=== PATIENT | male | born 1975 | race Two or more races ===

== ENCOUNTER 2017-12-07 17:16 | Emergency (ER) | payer SELFPAY ==
[2017-12-07 17:25] VITALS: PULSE 77; TEMP 98.1
--- NOTE | 2017-12-07 18:57 | EDPHY ---
General Time Seen by Provider: 12/07/17 18:40 Narrative: CHIEF COMPLAINT: Right leg injury HISTORY OF PRESENT ILLNESS: Patient complains of right leg injury that was sustained at work. This happened 2-3 hours prior to arrival. He had his right foot in a ditch when a large rock rolled into it, striking him on the lateral aspect of the right leg below the knee. Sudden onset of pain in the right lateral rosenbaum and right medial ankle. Too painful to bear weight. No numbness or tingling. No weakness. There is abrasion to the right leg but no laceration. No pain in the right knee, thigh, hip. No injury elsewhere. No other associated complaints or modifying factors. ESTABLISHED ORTHOPEDIST: None REVIEW OF SYSTEMS: Ten systems reviewed and are negative unless otherwise noted in the HPI PAST MEDICAL HISTORY: Denies any medical history PAST SURGICAL HISTORY: None SOCIAL HISTORY: Nonsmoker. Lives and works here independently with his spouse FAMILY HISTORY: Noncontributory EXAMINATION General Appearance: Alert, no distress HEENT: Normocephalic atraumatic. Pupils equal round reactive. Cardiovascular: Symmetric DP pulses 2+. Symmetric PT pulses 2+. Regular rate. Neurological: A&O, sensation to the dorsum of the feet and plantar surfaces of the feet symmetric. No foot drop on the right lower extremity. Normal proprioception of the right great toe Skin: Warm and dry, no rash. Superficial abrasion to the right lateral lower leg. No laceration. No puncture. The right lower extremity is warm with good signs of perfusion of the foot Extremities: Severe tenderness of the right medial malleolus and right mid shaft fibula. There is mild deformity of the right fibula. No deformity of the midfoot. No pain with the right calcaneus with from palpation. Range of motion of the right ankle limited due to pain. Neurovascular intact distal to the areas of pain Psychiatric: Mood and affect normal DIFFERENTIAL DIAGNOSES: Including but not limited to compound fracture, tibia fracture, fibular fracture , sprain, strain, dislocation MDM: 6:40 p.m. Acute injury to the right lower leg with apparent fracture. This is closed. He is neurovascular intact distally. X-ray has been ordered. 6:50 p.m. X-ray as read by me reveals right, minimally displaced midshaft fibular fracture. There is also a medial malleolar fracture with displacement angulation. 6:58 p.m. Case discussed with orthopedist Dr. Powell. I reviewed the x-ray and examination findings. He recommends a 3 way posterior splint with stirrup. Recommends crutches, nonweightbearing status and to be seen in the clinic on Monday. 7:10 p.m. Patient re-evaluated. I discussed my conversation with orthopedist. I discussed pain medication, strict nonweightbearing and the splint will be placed. 7:45 p.m. Patient re-evaluated. The splint is in place. It has crutches and provided. He remains neurovascular intact by my examination. We discussed strict nonweightbearing. We discussed anti-inflammatories, ice, elevation. We discussed pain medication as prescribed as needed. We discussed that he needs to contact orthopedist tomorrow morning to be seen on Monday for outpatient evaluation and to schedule surgery. We discussed this is an on stable fracture and he cannot put any weight on this at all. We discussed ED precautions. I have answered all his questions. At this time he is discharged home stable condition. SUPERVISION: Patient was independently examined, but I discussed the case with my secondary supervising physician Dr. Sanchez ED Precautions: Worsening pain. Erythema, edema, cyanosis, pallor, paresthesia or anesthesia. - Diagnostics Imaging Results: Imaging Impressions Tibia/Fibula X-Ray 12/07/17 17:25 Impression: Fracture of the medial malleolus, with associated medial subluxation of the distal tibia with respect to the talar dome consistent with disruption of the ankle mortise. Right Tibia/Fibula (Lower Leg), Two Views Clinical Indications: Pain following trauma. Findings: There is an oblique displaced and mildly angulated fracture of the fibular shaft at the junction of the middle and distal thirds. The knee appears intact. Impression: Displaced and angulated oblique fracture of the right fibula. Ankle X-Ray 12/07/17 18:25 Impression: Fracture of the medial malleolus, with associated medial subluxation of the distal tibia with respect to the talar dome consistent with disruption of the ankle mortise. Right Tibia/Fibula (Lower Leg), Two Views Clinical Indications: Pain following trauma. Findings: There is an oblique displaced and mildly angulated fracture of the fibular shaft at the junction of the middle and distal thirds. The knee appears intact. Impression: Displaced and angulated oblique fracture of the right fibula. - History Smoking Status: Never smoked - Objective Vital Signs: Initial Vital Signs Temperature (C) 98.1 F 12/07/17 17:21 Heart Rate 77 12/07/17 17:21 Respiratory Rate 16 12/07/17 17:21 Blood Pressure 112/74 12/07/17 17:21 O2 Sat (%) 94 12/07/17 17:21 O2 Delivery Mode Room Air Allergies/Adverse Reactions: No Known Allergies Allergy (Unverified 12/07/17 17:20) Home Medications: Medication Instructions Recorded Levothyroxine 12/07/17 oxyCODONE HCL/ACETAMINOPHEN 1 each PO Q4-6PRN PRN #19 tablet 12/07/17 [Percocet 5-325 mg Tablet] Departure - Departure Disposition: Home, Routine, Self-Care Clinical Impression: Fibula fracture Qualifiers: Encounter type: initial encounter Fibula location: shaft Fracture type: closed Fracture morphology: oblique Fracture alignment: displaced Laterality: right Qualified Code(s): S82.431A - Displaced oblique fracture of shaft of right fibula, initial encounter for closed fracture Fractured medial malleolus Qualifiers: Encounter type: initial encounter Fracture type: closed Fracture alignment: displaced Laterality: right Qualified Code(s): S82.51XA - Displaced fracture of medial malleolus of right tibia, initial encounter for closed fracture Condition: Good Instructions: Leg Fracture (ED), ORIF of a Leg Fracture (DC) Additional Instructions: 1. Strict nonweightbearing status. This is an unstable fracture 2. Medications as prescribed as needed 3. Contact the on-call orthopedist as discussed and provided tomorrow morning at 8:30 a.m.. You need to be seen on Monday in their clinic to discuss surgical intervention 4. Return to emergency department for any worsening pain, numbness, tingling, weakness, changes in temperature sensation Referrals: Devika Powell MD [Medical Doctor] - As per Instructions Prescriptions: oxyCODONE HCL/ACETAMINOPHEN [Percocet 5-325 mg Tablet] 1 each PO Q4-6PRN PRN # 19 tablet PRN Reason: Pain, Breakthrough
[2017-12-07 20:46] VITALS: BP 126/65; RESP 18; O2SAT 95
== END 2017-12-07 20:46 | disposition home or self-care (01) ==
DX: S82.431A Displaced oblique fracture of shaft of right fibula, initial encounter for closed fracture (principal); S82.51XA Displaced fracture of medial malleolus of right tibia, initial encounter for closed fracture; W22.8XXA Striking against or struck by other objects, initial encounter